=== PATIENT | female | born 1990 | race Caucasian/White ===

== ENCOUNTER → 2016-11-13 | Outpatient (CLI) | payer BC ==
[2016-11-13 19:13] LABS: Treponemal Ab Non-Reactive (Non-Reactive)
== END | disposition home or self-care (01) ==
LOC: LABWHC1 12:19
PROVIDERS: ATTEND Obstetrics & Gynecology
DX: Z11.3 Encounter for screening for infections with a predominantly sexual mode of transmission (principal)
CPT/HCPCS: 36415; 86780; 87390

== ENCOUNTER → 2019-02-01 | Outpatient (CLI) | payer BC ==
[2019-02-01 10:17] LABS: HCT 32.8 % (34.0-46.0); HGB 11.3 gm/dL (11.4-16.0); MCH 30.8 pg (25.0-35.0); MCHC 34.4 g/dL (31.0-37.0); MCV 89.5 fL (80.0-100.0); Mean Platelet Volume 6.7; Platelet Count 191 k/uL (150-450); RBC 3.67 m/uL (3.80-5.40); RDW 12.8 % (11.5-15.5); WBC 11.1 k/uL (3.8-10.6)
== END ==
LOC: LABWHC1 08:25
PROVIDERS: ATTEND Obstetrics & Gynecology
DX: Z34.82 Encounter for supervision of other normal pregnancy, second trimester (principal); Z3A.00 Weeks of gestation of pregnancy not specified
CPT/HCPCS: 36415; 82950; 85027

== ENCOUNTER 2019-05-10 04:00 | Inpatient (IN) | payer OTHER ==
[2019-05-10] MEDS ORDERED: METHYLERGONOVINE 0.2 MG/ML 1 ML AMP IM PRN (04:24)
[2019-05-10] MEDS ORDERED: OXYTOCIN 10 UNIT/ML 1 ML VIAL IM PRN (04:24)
[2019-05-10] MEDS ORDERED: CARBOPROST TROMETHAMINE 250 MCG/ML 1 ML AMP IM PRN (04:24)
[2019-05-10] MEDS ORDERED: OXYTOCIN 30 UNITS/500 ML NS 30 UNIT in SALINE 1 500ML.BAG IV SCH (04:24)
[2019-05-10] MEDS ORDERED: LIDOCAINE 0.5% (PF) 5 MG/ML (50 ML SDV) SQ PRN (04:24)
[2019-05-10] MEDS ORDERED: TERBUTALINE 1 MG/ML VIAL SQ PRN (04:24)
[2019-05-10] MEDS: LACTATED RINGERS 1,000 ML IV SCH ×2 (04:32→05:56)
[2019-05-10 04:51] LABS: HCT 36.9 % (34.0-46.0); HGB 12.3 gm/dL (11.4-16.0); MCH 29.4 pg (25.0-35.0); MCHC 33.4 g/dL (31.0-37.0); MCV 88.3 fL (80.0-100.0); Mean Platelet Volume 8.6; Platelet Count 117 k/uL (150-450); RBC 4.19 m/uL (3.80-5.40); RDW 13.9 % (11.5-15.5); WBC 9.4 k/uL (3.8-10.6)
[2019-05-10] MEDS ORDERED: SODIUM CHLORIDE 0.9% 100 ML BAG ONE (05:55)
[2019-05-10] MEDS ORDERED: ROPIVACAINE 5MG/ML 20ML VIAL ONE (05:55)
[2019-05-10] MEDS ORDERED: fentaNYL (PF) 50 MCG/ML 5 ML AMP ONE (05:55)
--- NOTE | 2019-05-10 06:04 | P.HPOB ---
History of Present Illness H&P Date: 05/10/19 Chief Complaint: Contractions. This patient is a pleasant 28-year-old 2 para 1 female estimated date of confinement 05/16/2019 estimated gestational age 39 and one sevenths weeks gestation who is admitted to labor and delivery with complaints of contractions. Patient's care is complicated by first trimester exposure to Depakote Lexapro, therefore patient was referred to maternal- medicine all evaluation there was negative. Patient's been followed with nonstress tests and growth ultrasounds and all his been normal. Patient began having contractions earlier in the evening last night is now found to be in active labor. 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 Past Drug Use History: None Reported - Past Family History Sister(s) Family Medical History: Cancer Additional Family Medical History / Comment(s): breast Medications and Allergies Home Medications Medication Instructions Recorded Confirmed Type Escitalopram [Lexapro] 1 tab PO DAILY 05/10/19 05/10/19 History Allergies Allergy/AdvReac Type Severity Reaction Status Date / Time No Known Allergies Allergy Verified 05/10/19 04:22 Exam Vital Signs Temp Pulse Resp BP Pulse Ox 05/10/19 04:21 98.7 F 111 H 16 119/66 99 Intake and Output 05/09/19 05/09/19 05/10/19 14:59 22:59 06:59 Other: Weight 93.894 kg - OBG Physical Exam Abdomen: bowel sounds normal, no diffuse tenderness, no bruit present, no guarding noted, no hepatomegaly, no splenomegaly, no mass Vulva: both: normal Vagina: normal moisture, no discharge Cervix: Cervix is 5 cm 90% effaced -1 station Uterus: enlarged (Fundal height 38 cm) Results blood work shows she is A positive, rubella immune, RPR nonreactive, hepatitis B negative, HIV is nonreactive, Glucola was normal, group B strep was negative, cardiac echo was normal, level III ultrasound was normal, growth ultrasounds have been normal. Result Diagrams: 05/10/19 04:20 Abnormal Lab Results - Last 24 Hours (Table) 05/10/19 Range/Units 04:20 Plt Count 117 L (150-450) k/uL Assessment and Plan Assessment: This is a pleasant 28-year-old 2 para 1 female 39 and one sevenths weeks gestation admitted to labor and delivery in active labor. Plan is anticipate vaginal delivery. (1) 39 weeks gestation of Current Visit: Yes Status: Acute Code(s): Z3A.39 - 39 WEEKS GESTATION OF SNOMED Code(s): 14626565 (2) Normal labor Current Visit: Yes Status: Acute Code(s): O80 - ENCOUNTER FOR FULL-TERM UNCOMPLICATED DELIVERY; Z37.9 - OUTCOME OF DELIVERY, UNSPECIFIED SNOMED Code(s): 87663975
[2019-05-10 06:58] LABS: Band Neutrophils % 22 %; Eosinophils # (M) 0.09 k/uL (0-0.7); Lymphocytes # (M) 1.79 k/uL (1.0-4.8); Monocytes # (M) 0.66 k/uL (0-1.0); Neutrophils % (M) 53 %; Nucleated Red Blood Cells 0 /100 WBC (0-0); Total Cells Counted 200
[2019-05-10 06:59] LABS: Anisocytosis (M) Present; Large Platelets Present
[2019-05-10 07:00] LABS: Polychromasia Present
[2019-05-10] MEDS ORDERED: SIMETHICONE 80 MG CHEWABLE PO PRN (09:19)
[2019-05-10] MEDS ORDERED: BISACODYL 10 MG SUPP RECTAL PRN (09:19)
[2019-05-10] MEDS ORDERED: ZOLPIDEM 5 MG TAB PO PRN (09:19)
[2019-05-10] MEDS ORDERED: WITCH HAZEL 1 EACH MED..PAD TOPICAL PRN (09:19)
[2019-05-10] MEDS ORDERED: ACETAMINOPHEN TAB 325 MG TAB PO PRN (09:19)
[2019-05-10] MEDS ORDERED: BENZOCAINE/MENTHOL SPRAY 1 GM/SPRAY AEROSOL TOPICAL PRN (09:19)
[2019-05-10] MEDS ORDERED: OXYTOCIN 20 UNITS/1000 ML NS 1,000 ML IV SCH (09:19)
[2019-05-10] MEDS ORDERED: LANOLIN CREAM 5 GM TUBE TOPICAL PRN (09:19)
[2019-05-10] MEDS ORDERED: HYDROCORTISONE 2.5% RECTAL CREAM 30 GM TUBE RECTAL PRN (09:19)
[2019-05-10] MEDS ORDERED: diphenhydrAMINE 25 MG CAP PO PRN (09:19)
[2019-05-10] MEDS ORDERED: diphenhydrAMINE 50 MG/ML 1 ML VIAL IVP PRN (09:19)
[2019-05-10] MEDS: SENNOSIDES-DOCUSATE SODIUM 1 EACH TAB PO SCH ×2 (20:01→23:05)
[2019-05-10] MEDS: IBUPROFEN 600 MG TAB PO PRN (20:01)
--- NOTE | 2019-05-10 20:59 | P.PROBDLV ---
Vaginal Delivery Note - . Vaginal Delivery Note: Normal spontaneous vaginal delivery viable male infant Apgars 9 and 9 delivery time was 0902 hrs. Please see dictated H&P for intimate details of this patient's admission. Brief summary is a pleasant 28-year-old 2 para 1 female 39 and one sevenths weeks gestation admitted to labor and delivery with complaint of contractions found to be in active labor. Patient is 5 cm dilated she has artificial rupture membranes for clear fluid. Patient does get an epidural for pain control labor progresses very quickly thereafter she gets to complete. Patient pushes the head to the perineum. Posterior perineum is supported we have controlled delivery of infant's head over the intact perineum. Also nares are bulb suctioned. There is a nuchal cord 1 which is easily reduced. Gentle downward traction we then have deliver the anterior and posterior shoulder and rest this 's body. The vigorous viable male Apgars 9 and 9 delivery time was 0902 hrs. After delivery of the infant the umbilical cords allowed to quit pulsing is then doubly clamped and cut. It does appear to be trivascular. Placenta is then spontaneously delivered intact. Inspection of perineum shows no lacerations and no repairs required. All counts are correct 3. Estimated blood loss is 100 mL. There are no complications.
--- NOTE | 2019-05-10 21:00 | P.MSEPDOC ---
Presenting Problems - Arrival Data Date of Arrival on Unit: 05/10/19 Time of Arrival on Unit: 04:00 Medical History - Information : 2 Para: 1 Term: 1 : 0 Abortions: Spontaneous or Elective: 0 Number of Living Children: 1 - Gestational Age Gestational Age by MORALES (wks/days): 39 Weeks and 1 Days Vital Signs - Temperature Temperature: 99.7 F Temperature Source: Oral - Pulse Right Sitting Brachial Pulse Rate: 86 Pulse Assessment Method: Auscultation - Respirations Respiratory Rate: 18 Oxygen Delivery Method: Room Air O2 Sat by Pulse Oximetry: 97 - Blood Pressure Right Arm Sitting Blood Pressure: 117/72 Blood Pressure Mean: 87 Blood Pressure Source: Automatic Cuff I agree with the RN Medical Screening Exam: Yes Risk & Benefit of care provided described in d/c instruction: Yes Diagnosis: ENCOUNTER FOR FULL-TERM UNCOMPLICATED DELIVERY
--- NOTE | 2019-05-11 06:12 | P.PNOBGVD ---
Subjective - Subjective Patient reports: Reports appetite normal, Reports voiding normally, Reports pain well controlled, Reports ambulating normally : doing well Objective - Latest Vital Signs Latest vital signs: Vital Signs Temp Pulse Resp BP Pulse Ox 05/11/19 03:36 97.5 F L 68 14 101/62 05/11/19 00:00 97.5 F L 75 18 99/56 98 05/10/19 21:00 99.7 F H 86 18 117/72 97 05/10/19 20:00 99.7 F H 86 18 117/72 97 05/10/19 15:11 99.4 F 05/10/19 15:07 86 18 116/68 05/10/19 11:09 98 17 118/58 05/10/19 10:39 92 18 118/64 05/10/19 10:09 99.2 F 93 18 110/60 05/10/19 09:58 88 18 103/72 05/10/19 09:39 89 18 116/69 05/10/19 09:24 93 18 119/74 05/10/19 09:09 99.6 F 89 18 118/72 Intake and Output 05/10/19 05/10/19 05/11/19 14:59 22:59 06:59 Output Total 100 Balance -100 Output: Estimated Blood Loss 100 Other: # Voids 1 1 - Exam Lungs: bilateral: normal Chest: Normal S1, Normal S2 Extremities: Present: normal Abdomen: Present: normal appearance, soft Uterus: Present: normal, firm Assessment and Plan Assessment: day #1. Patient is resting without complaints most likely wants to go home today. Vital signs are stable and she is afebrile. Uterus is firm nontender she's having normal lochia. My impression is normal course. Plan is to continue routine care discharge home later today. (1) 39 weeks gestation of Current Visit: Yes Status: Acute Code(s): Z3A.39 - 39 WEEKS GESTATION OF SNOMED Code(s): 43126409 (2) Normal labor Current Visit: Yes Status: Acute Code(s): O80 - ENCOUNTER FOR FULL-TERM UNCOMPLICATED DELIVERY; Z37.9 - OUTCOME OF DELIVERY, UNSPECIFIED SNOMED Code(s): 75547062
--- NOTE | 2019-05-11 06:17 | P.DS ---
Providers Date of admission: 05/10/19 04:00 Expected date of discharge: 05/11/19 Attending physician: Mina Glover Primary care physician: Stated None - Discharge Diagnosis(es) (1) 39 weeks gestation of Current Visit: Yes Status: Acute (2) Normal labor Current Visit: Yes Status: Acute Hospital Course: Please see dictated H&P for intimate details of this patient's admission. Brief summary this pleasant 28-year-old 2 para 1 female 39 weeks gestation admitted to labor and delivery in active labor. Patient quickly goes on to have a vaginal delivery viable male infant. Please see dictated delivery note. day #1 patient without complaints she wishes to go home. Patient's felt to be stable for discharge home follow up with me in 6 weeks. Procedures: Normal spontaneous vaginal delivery Patient Condition at Discharge: Good Plan - Discharge Summary New Discharge Prescriptions: New Ibuprofen [Motrin] 600 mg PO Q6HR PRN #30 tab PRN Reason: Mild Pain Or Fever >= 100.5 No Action Escitalopram [Lexapro] 1 tab PO DAILY Discharge Medication List Escitalopram [Lexapro] 1 tab PO DAILY 05/10/19 [History] Ibuprofen [Motrin] 600 mg PO Q6HR PRN #30 tab 05/11/19 [Rx] Follow up Appointment(s)/Referral(s): Mina Glover MD [STAFF PHYSICIAN] - 06/20/19 11:15 am Patient Instructions/Handouts: Vaginal Delivery (DC) Activity/Diet/Wound Care/Special Instructions: No intercourse or anything per vagina for 6 weeks. Please call for any fever, chills, excessive vaginal bleeding, and/or abdominal pain. Discharge Disposition: HOME SELF-CARE
[2019-05-11 08:35] VITALS: BP 124/71; PULSE 85; RESP 16; TEMP 97.9
[2019-05-11] MEDS: IBUPROFEN 600 MG TAB PO PRN (09:23)
[2019-05-11] MEDS: SENNOSIDES-DOCUSATE SODIUM 1 EACH TAB PO SCH (09:23)
== END 2019-05-11 11:35 | disposition home or self-care (01) | DRG 806 ==
LOC: 4FBP 04:00
PROVIDERS: ADMIT Obstetrics & Gynecology; ATTEND Obstetrics & Gynecology
PROC: 00HU33Z Insertion of Infusion Device into Spinal Canal, Percutaneous Approach (ICD-10-PCS; principal; 2019-05-10)
PROC: 3E0R3BZ Introduction of Anesthetic Agent into Spinal Canal, Percutaneous Approach (ICD-10-PCS; principal; 2019-05-10)
PROC: 10E0XZZ Delivery of Products of Conception, External Approach (ICD-10-PCS; principal; 2019-05-10)
DX: O69.81X0 Labor and delivery complicated by cord around neck, without compression, not applicable or unspecified (principal); O99.354 Diseases of the nervous system complicating childbirth; Z37.0 Single live birth; G40.909 Epilepsy, unspecified, not intractable, without status epilepticus; O99.334 Smoking (tobacco) complicating childbirth; F17.200 Nicotine dependence, unspecified, uncomplicated; Z86.59 Personal history of other mental and behavioral disorders; Z3A.39 39 weeks gestation of pregnancy; Z80.3 Family history of malignant neoplasm of breast
CPT/HCPCS: 85025; 86850; 86900; 86901

== ENCOUNTER → 2023-08-05 | Outpatient (CLI) | payer OTHER ==
[2023-08-05 15:05] LABS: Basophils # (A) 0.03 X 10*3/uL (0.00-0.10); Basophils % (A) 0.6 %; Eosinophils # (A) 0.13 X 10*3/uL (0.04-0.35); Eosinophils % (A) 2.4 %; HCT 39.1 % (37.2-46.3); HGB 12.9 g/dL (12.0-15.0); Lymphocytes # (A) 2.01 X 10*3/uL (0.90-5.00); Lymphocytes % (A) 37.3 %; MCH 28.2 pg (27.0-32.0); MCV 85.6 FL (80.0-97.0); Mean Platelet Volume 10.8 FL (9.5-12.2); Monocytes # (A) 0.37 X 10*3/uL (0.20-1.00); Monocytes % (A) 6.9 %; NRBC Per 100 WBC 0 X 10*3/uL (0.00-0.01); Neutrophils # (A) 2.84 X 10*3/uL (1.80-7.70); Neutrophils % (A) 52.6 %; Platelet Count 243 X 10*3/uL (140-440); RBC 4.57 X 10*6/uL (4.10-5.20); RDW 12.9 % (11.5-14.5); WBC 5.39 X 10*3/uL (4.50-10.00)
[2023-08-05 15:36] LABS: ALT 34 U/L (8-44); AST 19 U/L (13-35); Albumin 4.5 g/dL (3.8-4.9); Albumin/Globulin Ratio 1.88 Ratio (1.60-3.17); Alkaline Phosphatase 64 U/L (41-126); Blood Urea Nitrogen 9.8 mg/dL (9.0-27.0); Calcium 9.3 mg/dL (8.7-10.3); Carbon Dioxide 23.9 mmol/L (21.6-31.8); Chloride 106 mmol/L (96-109); Chol/HDL Ratio 2.87 Ratio; Globulin 2.4 g/dL (1.6-3.3); Glucose 91 mg/dL (70-110); LDL Cholesterol,Calculated 90.9 mg/dL (0.0-131.0); Potassium 4.3 mmol/L (3.5-5.5); Sodium 142 mmol/L (135-145); Total Bilirubin 0.3 mg/dL (0.3-1.2); Total Protein 6.9 g/dL (6.2-8.2)
== END | disposition home or self-care (01) ==
LOC: LABWHC1 10:57
PROVIDERS: ATTEND Family Medicine
DX: E66.9 Obesity, unspecified (principal); F33.41 Major depressive disorder, recurrent, in partial remission; Z68.33 Body mass index [BMI] 33.0-33.9, adult
CPT/HCPCS: 36415; 80053; 80061; 84443; 85025